=== PATIENT | male | born 1990 | race Caucasian/White ===

== ENCOUNTER 2017-10-24 21:19 | Inpatient (IN) ==
[2017-10-24] MEDS ORDERED: SALINE FLUSH 10ml SYRINGE IVF PRN (21:32)
[2017-10-24] MEDS ORDERED: NS 1,000 ML IV ONE (21:33)
--- OUTSIDE RECORDS SUMMARY | 2017-10-24 21:36 | External Medical Summary | Summary of Care ---
:1990 Author Name Louie Moreira M.D. Address [address], [place] [id number] Care Team Providers Name Role Phone Louie Moreira M.D. Unavailable Unavailable Carissa Goodson Primary Care Provider Unavailable Unavailable Unavailable Unavailable Functional Status Functional Status Health Issues Name Dates Details Functional status health issues are not documented Status: Cognitive Status Health Issues Name Dates Details Cognitive status health issues are not documented Status: Problems Name Dates Details Hematochezia (578.1, K92.1) Status: Active Scabies (133.0, B86) Status: Active Encounter for pre-employment examination (V70.5, Z02.1) Status: Active GERD (gastroesophageal reflux disease) (530.81, K21.9) Status: Active Medications Name Dates Details Omeprazole 40 MG Oral Capsule Delayed Release Take one capsule by mouth daily Quantity: 30 Refills: 2 Louie Moreira M.D. Started Active Allergies and Adverse Reactions Name Dates Details No Known Drug Allergies Status: Active Procedures Procedure Dates Details History of Knee Surgery History of Tonsillectomy Procedures not documented Immunization Name Dates Details Immunizations not documented Family History Unknown Family Member Name Dates Details No pertinent family history Comments: Family History Status: Active Social History Smoking StatusUnknown if ever smoked Vital Signs Date Test Result Details 15:29 BP Systolic 145 mm[Hg] Status: BP Diastolic 45 mm[Hg] Status: Heart Rate 112 /min Status: Height 72 in Status: Weight 224 lb Status: Body Mass Index Calculated 30.38 kg/m2 Status: Body Surface Area Calculated 2.24 m2 Status: Results Date Description Value Details Results not documented Plan of Care Planned Observations Name Dates Details Planned Goals not documented Goal Planned Encounters Appointment; Provider: Louie Moreira On 02-Feb-2015 14:30 Instructions Instructions not documented Encounters Appointment; Louie Moreira On Encounter Diagnosis: Problem not documented 15:45
--- OUTSIDE RECORDS SUMMARY | 2017-10-24 21:37 | External Medical Summary | Summary of Care ---
:1990 Author Name Louie Moreira M.D. Address [address], [place] [id number] Care Team Providers Name Role Phone Louie [...]
[2017-10-24] MEDS ORDERED: DiltiaZEM 25 MG/5 ML INJECTION IVP ONE ×2 (21:43→23:08)
--- NOTE | 2017-10-24 21:43 | Emergency Department Report ---
Cardiac General HPI - General Chief Complaint: Arrhythmia/Palpitations Stated Complaint: passed out, heart racing Time Seen by Provider: 10/24/17 21:31 Source: patient Limitations: no limitations - History of Present Illness HPI narrative: Approximately one hour ago while placing his daughter in bed, the patient began to have dictations with a rapid pulse. Patient has never had anything like this before, with the exception of one week ago where he felt similar symptoms last only a few seconds. Patient is had no new exposures, does not drink or smoke, uses no recreational drugs, but does take a multivitamin that he started approximately 7-10 days ago. She denies fevers, shortness of breath, chest pain or aching, nausea vomiting, diarrhea, or neurologic symptoms. - Related Data Home Medications Medication Instructions Recorded Confirmed Cayenne 450 mg PO BID 10/24/17 10/24/17 Multivitamin [Multivitamins] 1 each PO DAILY 10/24/17 10/24/17 Allergies Allergy/AdvReac Type Severity Reaction Status Date / Time No Known Allergies Allergy Verified 10/24/17 21:47 Review of Systems All systems: reviewed and negative except as stated PFSH Negative - Social History Smoking status: Never smoker Substance use type: does not use Alcohol intake frequency: does not drink Physical Exam - Limitations Limitations: no limitations - General General appearance: alert - Normal Exams: Head:: Normocephalic without trauma Eyes:: Pupils are PERRLA w/ EOMI, No scleral icterus, irritation, or foreign bodies noted ENMT:: No facial trauma, nasal exudates, pharyngeal erythema, or exudates are noted Neck:: Full range of motion, without adenopathy, JVD, bruits or thyromegaly Chest/Respirations:: Clear all whalen, with good airflow, and symmetry bilaterally Abdomen:: Bowel sounds positive, soft, non-tender, non-distended, no hepatosplenomegaly, masses or bruits noted Lymphatic:: No lymphadenopathy, or lymphedema noted Musculoskeletal:: No tenderness, or deformity noted, good range of motion, all extremities Integumentary:: No rashes, hives, or bruising noted, hair and nails, without abnormality Neurological:: Patient is alert, and oriented, cranial nerves, motor/sensory/ cerebellar, exams w/o gross deficits, to observation Psychiatric:: Patient exhibits, appropriate attention, emotion and affect - Chest Chest inspection: Present: normal inspection, symmetric chest wall rise. Absent : tenderness - Cardiovascular Cardiovascular exam: Present: tachycardia, irregular rhythm Course Vital Signs Temperature 98.8 F 10/24/17 21:23 Pulse Rate 87 10/24/17 21:23 Respiratory Rate 18 10/24/17 21:23 Blood Pressure 139/103 H 10/24/17 21:23 Pulse Oximetry 97 10/24/17 21:23 Temperature 98.8 F 10/24/17 21:23 Pulse Rate 142 H 10/24/17 21:45 Respiratory Rate 25 H 10/24/17 21:45 Blood Pressure 142/109 H 10/24/17 21:45 Pulse Oximetry 97 10/24/17 21:45 Cardiac General - MDM Narrative Medical decision making narrative: EKG and monitor show atrial fibrillation with rapid ventricular rate of 120-150 him and no other ectopy, no ischemia. Patient is given diltiazem 20 mg IV, with 1 L normal saline IV fluids CBC - n CMP -n UA/UDS - n Troponin - n Patient had a brief response, with rate control in the 80s,, but then went back up into the high 90s to low 100s. Case is discussed with DORITA Daly for Dr. Reyes. We will admit ICU, give one additional bolus of 20 mg Cardizem, and continue Cardizem drip overnight. - Lab Data Result diagrams: 10/24/17 21:45 10/24/17 21:45 Lab Results 10/24/17 10/24/17 10/24/17 Range/Units 21:45 21:45 21:45 WBC 7.6 (4.5-11.0) T/MM3 RBC 5.41 (4.50-5.90) M/MM3 Hgb 16.3 (13.5-17.5) GM/DL Hct 46.0 (41-53) % MCV 85.0 (80-100) UM3 MCH 30.1 (26-34) UUG MCHC 35.4 (31-37) GM/DL RDW Std Deviation 38.3 (36.9-50.2) FL Plt Count 188 (130-400) T/MM3 MPV 10.9 (9.4-12.4) UM3 Immature Gran % (Auto) 0.1 (0.0-0.5) % Neut % (Auto) 55.3 (33-66) % Lymph % (Auto) 36.9 (23-45) % Hardy % (Auto) 5.9 (0-9.0) % Eos % (Auto) 1.7 (0-4) % Baso % (Auto) 0.1 (0-2) % Neut # (Auto) 4.2 (1.8-7.7) T/MM3 Lymph # (Auto) 2.8 (1-4.8) T/MM3 Hardy # (Auto) 0.5 (0-0.8) T/MM3 Eos # (Auto) 0.1 (0-0.5) T/MM3 Baso # (Auto) 0.0 (0-0.2) T/MM3 Abs Immat Gran (auto) 0.01 (0.00-0.03) T/MM3 Turbidity < 20 (0-20) Sodium 146 H (134-144) MEQ/L Potassium 3.7 (3.6-5) MEQ/L Chloride 103 (98-107) MEQ/L Carbon Dioxide 27 (22-30) MEQ/L Anion Gap 16 H (5-15) meq/L BUN 18.0 (9-20) MG/DL Creatinine 0.8 (0.8-1.5) mg/dL GFR Calculation 114 BUN/Creatinine Ratio 23 (6-26) RATIO Glucose 141 H (75-110) MG/DL Calculated Osmolality 285 H (261-280) MOSM/KG Calcium 9.8 (8.4-10.2) MG/DL Total Bilirubin 0.40 (0.20-1.30) MG/DL Conjugated Bilirubin 0.00 (0.00-0.30) mg/dL Unconjugated Bilirubin 0.10 (0.00-1.1) mg/dL Icterus Index < 2 (0-7) AST 25 (17-59) U/L ALT 39 (1-50) U/L Alkaline Phosphatase 56 (38-126) U/L Troponin I < 0.012 (0-0.12) ng/ml Total Protein 7.8 (6.3-8.2) g/dL Albumin 5.1 H (3.5-5.0) g/dL Globulin 2.7 (2.4-3.6) G/DL Albumin/Globulin Ratio 1.9 (1.1-2.2) RATIO Specimen Hemolysis < 15 (0-25) Ur Collection Type Urine, void-cc/notcc Urine Color Yellow (YELLOW) Urine Clarity Sl cloudy Urine pH 6.5 (5.0-8.0) Ur Specific [place] 1.020 (1.015-1.025) Urine Protein 1+ A (NEGATIVE) Urine Glucose (UA) Negative (NEGATIVE) Urine Ketones Negative (NEGATIVE) Urine Occult Blood Negative (NEGATIVE) Urine Nitrate Negative (NEGATIVE) Urine Bilirubin Negative (NEGATIVE) Urine Urobilinogen 0.2 (NORMAL) EU/DL Ur Leukocyte Esterase Negative (NEGATIVE) Urine RBC None seen (0-3) /HPF Urine WBC None seen (0-5) /HPF Amorphous Sediment Moderate Urine Bacteria Trace H (NEGATIVE) Ur Culture Indicated? Cult not indicated Urine Opiates Screen ng/mL Ur Oxycodone Screen ng/mL Urine Methadone Screen ng/mL Ur Propoxyphene Screen ng/mL Ur Barbiturates Screen ng/mL U Tricyclic Antidepress ng/mL Ur Phencyclidine Scrn ng/mL Ur Amphetamines Screen ng/mL U Methamphetamines Scrn ng/mL U Benzodiazepines Scrn ng/mL Urine Cocaine Screen ng/mL U Cannabinoids Screen ng/mL 10/24/17 Range/Units 21:45 WBC (4.5-11.0) T/MM3 RBC (4.50-5.90) M/MM3 Hgb (13.5-17.5) GM/DL Hct (41-53) % MCV (80-100) UM3 MCH (26-34) UUG MCHC (31-37) GM/DL RDW Std Deviation (36.9-50.2) FL Plt Count (130-400) T/MM3 MPV (9.4-12.4) UM3 Immature Gran % (Auto) (0.0-0.5) % Neut % (Auto) (33-66) % Lymph % (Auto) (23-45) % Hardy % (Auto) (0-9.0) % Eos % (Auto) (0-4) % Baso % (Auto) (0-2) % Neut # (Auto) (1.8-7.7) T/MM3 Lymph # (Auto) (1-4.8) T/MM3 Hardy # (Auto) (0-0.8) T/MM3 Eos # (Auto) (0-0.5) T/MM3 Baso # (Auto) (0-0.2) T/MM3 Abs Immat Gran (auto) (0.00-0.03) T/MM3 Turbidity (0-20) Sodium (134-144) MEQ/L Potassium (3.6-5) MEQ/L Chloride (98-107) MEQ/L Carbon Dioxide (22-30) MEQ/L Anion Gap (5-15) meq/L BUN (9-20) MG/DL Creatinine (0.8-1.5) mg/dL GFR Calculation BUN/Creatinine Ratio (6-26) RATIO Glucose (75-110) MG/DL Calculated Osmolality (261-280) MOSM/KG Calcium (8.4-10.2) MG/DL Total Bilirubin (0.20-1.30) MG/DL Conjugated Bilirubin (0.00-0.30) mg/dL Unconjugated Bilirubin (0.00-1.1) mg/dL Icterus Index (0-7) AST (17-59) U/L ALT (1-50) U/L Alkaline Phosphatase (38-126) U/L Troponin I (0-0.12) ng/ml Total Protein (6.3-8.2) g/dL Albumin (3.5-5.0) g/dL Globulin (2.4-3.6) G/DL Albumin/Globulin Ratio (1.1-2.2) RATIO Specimen Hemolysis (0-25) Ur Collection Type Urine Color (YELLOW) Urine Clarity Urine pH (5.0-8.0) Ur Specific [place] (1.015-1.025) Urine Protein (NEGATIVE) Urine Glucose (UA) (NEGATIVE) Urine Ketones (NEGATIVE) Urine Occult Blood (NEGATIVE) Urine Nitrate (NEGATIVE) Urine Bilirubin (NEGATIVE) Urine Urobilinogen (NORMAL) EU/DL Ur Leukocyte Esterase (NEGATIVE) Urine RBC (0-3) /HPF Urine WBC (0-5) /HPF Amorphous Sediment Urine Bacteria (NEGATIVE) Ur Culture Indicated? Urine Opiates Screen Negative ng/mL Ur Oxycodone Screen Negative ng/mL Urine Methadone Screen Negative ng/mL Ur Propoxyphene Screen Negative ng/mL Ur Barbiturates Screen Negative ng/mL U Tricyclic Antidepress Negative ng/mL Ur Phencyclidine Scrn Negative ng/mL Ur Amphetamines Screen Negative ng/mL U Methamphetamines Scrn Negative ng/mL U Benzodiazepines Scrn Negative ng/mL Urine Cocaine Screen Negative ng/mL U Cannabinoids Screen Negative ng/mL Disposition Clinical Impression: Atrial fibrillation with RVR Disposition: 02 To OBS [facility] [place] Condition: Improved Prescriptions: No Action Multivitamin [Multivitamins] 1 each PO DAILY Cayenne 450 mg PO BID Referrals: [facility] [Primary Care Provider] - - Seen By: physician
[2017-10-24] MEDS ORDERED: NS IV SCH (22:15)
[2017-10-24] MEDS ORDERED: DILTIAZEM DRIP IV SCH (22:15)
[2017-10-24] MEDS ORDERED: DIGOXIN 500 MCG/2 ML INJECTION IVP ONE (23:22)
[2017-10-24] MEDS ORDERED: DiltiaZEM Drip 125 MG in NS 125 ML IV SCH (23:30)
[2017-10-24] MEDS ORDERED: DIGOXIN 500 MCG/2 ML INJECTION IVP SCH (23:45)
[2017-10-24 23:54] VITALS: BMI 28.3
[2017-10-25] MEDS ORDERED: DiltiaZEM Drip 125 MG in NS 125 ML IV SCH
[2017-10-25] MEDS ORDERED: RIVAROXABAN 20 MG TABLET PO SCH (00:01)
[2017-10-25] MEDS ORDERED: ONDANSETRON 4 MG/2 ML INJECTION IVP PRN (00:05)
[2017-10-25] MEDS ORDERED: HYDROCODONE/APAP 5mg/325mg TABLET PO PRN (00:05)
[2017-10-25] MEDS ORDERED: ZOLPIDEM 5 MG TABLET PO PRN (00:05)
[2017-10-25] MEDS ORDERED: ACETAMINOPHEN 650 MG/20.3 ML SOLUTION PO PRN (00:05)
--- NOTE | 2017-10-25 10:28 | Cardiology History & Physical ---
History of Present Illness Chief complaint: afib RVR HPI: Patient is a 27yo male with no PMH went up a flight of stairs and down then became soa with chest tightness and fell to the ground with syncope. He came directly to the ER and was found to be in afib RVR 130's. Carizem IV bolus and drip started with little effect. Dig 0.5IV x1 given and rate decreased to 60-70' s. Troponin was negative, TSH elevated, mag normal range, A1C 5.1. Denies soa, palpitations, chest pain, syncope, diaphoresis. Endorses chest tightness and flutter feeling in his chest on and off for last year that causes him to be light headed. No family history of heart disease or problems. Review of Systems - Constitutional Constitutional: Absent: fatigue, lethargy - EENMT Eyes: Absent: loss of vision Mouth/Throat: Absent: sore throat, bleeding gums - Cardiovascular Cardiovascular: Absent: chest pain, palpitations, syncope, orthopnea, edema - Respiratory Respiratory: Absent: cough, dyspnea, dyspnea on exertion, wheezing, pain on inspiration - Gastrointestinal Gastrointestinal: Absent: abdominal pain, diarrhea, nausea, odynophagia - Genitourinary Genitourinary: Absent: nocturia, urinary frequency, urinary hesitancy - Musculoskeletal Musculoskeletal: Absent: abnormal gait, joint swelling, muscle cramps - Integumentary/Breasts Integumentary: Absent: change in hair, change in nails - Neurological Neurological: Absent: abnormal gait, abnormal movements, burning sensations, headache(s), loss of vision - Psychiatric Psychiatric: Absent: abnormal sleep pattern, difficulty concentrating, panic attacks - Endocrine Endocrine: Absent: heat intolerance, polydipsia, polyuria - Hematologic/Lymphatic Hematologic/Lymphatic: Absent: easy bleeding, lymphadenopathy PFSH no health hx Family History: Brother: seizures - Social History Smoking status: Never smoker Substance use type: does not use Alcohol intake frequency: does not drink Medications Home Medications Medication Instructions Recorded Confirmed Type Cayenne 450 mg PO BID 10/24/17 10/24/17 History Multivitamin [Multivitamins] 1 each PO DAILY 10/24/17 10/24/17 History Aspirin *EC* [Ecotrin] 81 mg PO DAILY #30 tab 10/25/17 Rx Levothyroxine Tab [Synthroid] 25 mcg PO ACB #30 tab 10/25/17 Rx Allergies Allergy/AdvReac Type Severity Reaction Status Date / Time No Known Allergies Allergy Verified 10/24/17 21:47 Exam Vital signs: Temperature 98.4 F 10/25/17 07:59 Pulse Rate 50 L 10/25/17 08:00 Respiratory Rate 18 10/25/17 07:59 Blood Pressure 127/70 10/25/17 07:59 Pulse Oximetry 100 10/25/17 07:59 Results 10/24/17 21:45 10/25/17 10:29 Intake and Output 10/24/17 10/25/17 10/25/17 22:59 06:59 14:59 Intake Total 370.083 / 370.083 Output Total 850 / 850 Balance -479.917 / -479.917 Intake: IV 30.083 / 30.083 DiltiaZEM Drip 125 mg In Ns 125 30.083 / 30.083 ml @ 5 mls/hr IV .Q24H [facility] Rx# :[id number] Oral 340 / 340 Output: Urine 850 / 850 Other: Urine Appearance Clear Urine Color Yellow # Voids 1 Weight 94.7 kg 95 kg Patient Weight 10/26/17 06:59 Weight 95 kg - Imaging and Cardiology Echo: pending EKG results: report reviewed - EKG Interpretation EKG: sinus rhythm EKG shows: bradycardia Hospital Course This is a general summary of the patient's hospital course. For more details refer to the complete medical record. Resuscitation Status: Full Code Assessment and Plan - Attestation Attestation Narrative: 11/03/17 11:37 Recommendation After examining the patient I agree with the above assessment. I am involved in the formulation of the patient's plan of care. - Assessment and Plan (1) Atrial fibrillation with RVR Start date: 10/24/17 Status: Acute Cardizem bolus and gtt initiated in ER. Rate continued to RVR 130's. Digoxin 0.5mg IV x1 given 10-24-17 with Xarelto 20mg po x1. Rate decreased to 60's. Successfully converted at 0400 to sinus bradycardia. Cardizem gtt discontinued. ASA 81mg po daily started. f/u this week for echo and possible holter monitor. (2) Hypothyroid Start date: 10/25/17 Status: Acute TSH 5.47. Start Levothyroxine and follow up with PCP for further management
[2017-10-25] MEDS ORDERED: LEVOTHYROXINE 25 MCG TABLET PO SCH (11:00)
[2017-10-25] MEDS ORDERED: ASPIRIN *EC* 81 MG TABLET PO SCH (11:15)
[2017-10-25 11:28] VITALS: TEMP 98.2
[2017-10-25 12:54] VITALS: BP 133/76; PULSE 57; RESP 19; O2SAT 97
--- NOTE | 2017-10-25 12:55 | Discharge Summary ---
<Deep RunDarshana Manning Stewart - Last Filed: 10/25/17 12:51> Discharge Information Date of admission: 10/24/17 23:50 Attending Physician: Ted Espinoza MD Primary care physician: [facility] - Discharge Diagnosis (1) Atrial fibrillation with RVR Status: Acute (2) Hypothyroid Status: Acute - Laboratory Labs: 10/25/17 10:29 History of Present Illness HPI: Patient is a 27yo male with no PMH went up a flight of stairs and down then became soa with chest tightness and fell to the ground with syncope. He came directly to the ER and was found to be in afib RVR 130's. Carizem IV bolus and drip started with little effect. Dig 0.5IV x1 given and rate decreased to 60-70' s. Troponin was negative, TSH elevated, mag normal range, A1C 5.1. Denies soa, palpitations, chest pain, syncope, diaphoresis. Endorses chest tightness and flutter feeling in his chest on and off for last year that causes him to be light headed. No family history of heart disease or problems. Hospital Course This is a general summary of the patient's hospital course. For more details refer to the complete medical record. Time spent with patient: 25 - 35 minutes Exam Vital signs: Temperature 98.2 F 10/25/17 11:00 Pulse Rate 66 10/25/17 11:00 Respiratory Rate 18 10/25/17 11:00 Blood Pressure 122/71 10/25/17 11:00 Pulse Oximetry 99 10/25/17 11:00 - Constitutional no acute distress - Routine HEENT Exam Head: Present: hematoma Eye: Present: scleral injection ENT: Present: mucous membranes moist - Routine Neck Exam Present: supple, full ROM - Routine Respiratory Exam Present: CTA bilaterally - Routine Cardiovascular Exam Present: RRR, S1, S2, bradycardia - Routine Abdominal Exam Present: soft - Routine Extremities Exam Absent: cyanosis, clubbing, edema - Routine Back/Spine/Pelvis Exam Back/Spine: Present: full ROM - Routine Skin Exam Present: intact, dry - Routine Neurological Exam Present: alert, oriented X3 - Routine Psychiatric Exam Present: normal affect Results 10/24/17 21:45 10/25/17 10:29 Comprehensive Metabolic Panel 05/20/18 Range/Units 10:29 Sodium 145 H (134-144) MEQ/L Potassium 3.9 (3.6-5) MEQ/L Chloride 102 (98-107) MEQ/L Carbon Dioxide 30 (22-30) MEQ/L BUN 14.0 (9-20) MG/DL Creatinine 0.8 (0.8-1.5) mg/dL Glucose 91 (75-110) MG/DL Calcium 9.8 (8.4-10.2) MG/DL Intake and Output 10/24/17 10/25/17 10/25/17 22:59 06:59 14:59 Intake Total 370.083 / 370.083 Output Total 850 / 850 Balance -479.917 / -479.917 Intake: IV 30.083 / 30.083 DiltiaZEM Drip 125 mg In Ns 125 30.083 / 30.083 ml @ 5 mls/hr IV .Q24H [facility] Rx# :[id number] Oral 340 / 340 Output: Urine 850 / 850 Other: Urine Appearance Clear Urine Color Yellow # Voids 1 Weight 94.7 kg 95 kg Patient Weight 10/26/17 06:59 Weight 95 kg - Imaging and Cardiology Holter: report reviewed - EKG Interpretation EKG: sinus rhythm EKG shows: bradycardia Discharge Plan - Med Rec/Dispo Referrals/Follow Up: Ted Espinoza MD [Physician] - [facility] Instructions: A-fib (Atrial Fibrillation) (DC), Hypothyroidism (DC) Additional Instructions: call office thursday to see Dr. Espinoza or Dr. Galindo this week for echo and possible holter monitor Prescriptions: New Aspirin *EC* [Ecotrin] 81 mg PO DAILY #30 tab Levothyroxine Tab [Synthroid] 25 mcg PO ACB #30 tab Continue Multivitamin [Multivitamins] 1 each PO DAILY [place] 450 mg PO BID - Disposition 01 Discharged Home, Self-Care - Dismissal Complete Discharge Instructions are:: Complete <Ted Espinoza - Last Filed: 11/03/17 11:37> Discharge Information Date of admission: 10/24/17 23:50 Attending Physician: Ted Espinoza MD Primary care physician: [facility] - Discharge Diagnosis (1) Atrial fibrillation with RVR Status: Acute (2) Hypothyroid Status: Acute - Laboratory Labs: 10/25/17 10:29 Hospital Course This is a general summary of the patient's hospital course. For more details refer to the complete medical record. Exam Vital signs: Temperature 98.2 F 10/25/17 11:00 Pulse Rate 57 L 10/25/17 12:45 Respiratory Rate 19 10/25/17 12:45 Blood Pressure 133/76 10/25/17 12:00 Pulse Oximetry 97 10/25/17 12:45 Results 10/24/17 21:45 10/25/17 10:29 Attestation Narriative - Attestation Attestation Narrative: 11/03/17 11:37 Recommendation After examining the patient I agree with the above assessment. I am involved in the formulation of the patient's plan of care.
== END 2017-10-25 13:20 | disposition home or self-care (01) | DRG 310 ==
LOC: EDHOLD 21:19 → ED 21:19 → CCU 23:25
PROVIDERS: ADMIT Internal Medicine Cardiovascular Disease; ATTEND Internal Medicine Cardiovascular Disease